=== PATIENT | male | born 1945 | race African-American/Black ===

== ENCOUNTER 2016-06-27 00:30 | Emergency (ER) | payer MEDICARE, MEDICAID ==
[~2016-06-27 00:30] MED LIST: CIPR500T4 PO; PERC5TAB12 PO; Z.0.NO CURRENT MEDS
[2016-06-27 00:33] VITALS: BP 194/104; PULSE 93; RESP 14; TEMP 98.5; O2SAT 98
--- NOTE | 2016-06-27 00:52 | PD ---
HPI Chief Complaint: Oral / Dental Pain or Problem Time Seen by Provider: 00:52 Travel History International Travel<30 days: No Contact w/Intl Traveler<30days: No Traveled to known affect area: No History of Present Illness HPI 71-year-old male presents to the emergency department for evaluation of left mandibular first molar pain worsening over the past several weeks. Denies any fever or chills. No swelling. No trauma. Patient also reports a cough that has been ongoing for an unknown amount of time. It is productive of a greenish brown sputum. Patient states that he smokes tobacco cigarettes, a pack every 2 days. Denies any fever or chills. Has not followed up with primary care provider. Denies chest pain. No difficulty breathing. No other symptoms to report this time. PFSH Past Medical History Heart Rhythm Problems: No Cardiac Catheterization: No Cardiovascular Problems: No High Cholesterol: No Congestive Heart Failure: No Diabetes: No Diminished Hearing: No Past Surgical History Coronary Artery Bypass Graft: No Other Surgery: Yes (L LEG SKIN GRAFT) Social History Alcohol Use: No Tobacco Use: No Substance Use: No Allergies-Medications (Allergen,Severity, Reaction): Coded Allergies: No Known Allergies (Verified , 06/27/16) Reported Meds & Prescriptions Reported Meds & Active Scripts Active Peridex Liq (Chlorhexidine Gluconate (Mouth) Liq) 0.12% Soln 15 Ml SWISH-SPIT BID Proair Hfa 8.5 GM Inh (Albuterol Sulfate) 90 Mcg/Act Aer 2 Puff INH Q4HR PRN 108 mcg/actuation Doxycycline Hyclate 100 Mg Cap 100 Mg PO BID Percocet 5-325 mg (Oxycodone/Acetaminophen) Oxycodone 5/325 Acetaminophen Tab 1 Tab PO Q6H PRN Reported Cipro (Ciprofloxacin HCl) 500 Mg Tab 500 Mg PO BID No Current Meds (Miscellaneous Medication) Misc Review of Systems Except as stated in HPI: all other systems reviewed are Neg Physical Exam Narrative GENERAL: Well-nourished elderly male patient in no acute distress SKIN: Focused skin assessment warm/dry. HEAD: Atraumatic. Normocephalic. EYES: Pupils equal and round. No scleral icterus. No injection or drainage. ENT: No nasal bleeding or discharge. Mucous membranes pink and moist. DENTAL: No loose or chipped teeth. The left mandibular first molar is decayed down to the gingiva with significant gingival erythema and edema. No appreciable abscess. No malocclusion. NECK: Trachea midline. No JVD. CARDIOVASCULAR: Regular rate and rhythm. No murmur appreciated. RESPIRATORY: No accessory muscle use. Coarse throughout, diminished bases. Breath sounds equal bilaterally. GASTROINTESTINAL: Abdomen soft, non-tender, nondistended. Hepatic and splenic margins not palpable. MUSCULOSKELETAL: No obvious deformities. No clubbing. No cyanosis. No edema. NEUROLOGICAL: Awake and alert. No obvious cranial nerve deficits. Motor grossly within normal limits. Normal speech. PSYCHIATRIC: Appropriate mood and affect; insight and judgment normal. Data Data Last Documented VS Vital Signs Date Time Temp Pulse Resp B/P Pulse Ox O2 Delivery O2 Flow Rate FiO2 06/27/16 00:33 98.5 93 14 194/104 98 Room Air Orders Ketorolac Inj (Toradol Inj) (06/27/16 01:00) Chest, Single Ap (06/27/16 ) Albuterol-Ipratropium Neb (Duoneb Neb) (06/27/16 01:00) MDM Medical Decision Making Medical Screen Exam Complete: Yes Emergency Medical Condition: Yes Medical Record Reviewed: Yes Differential Diagnosis Dental caries versus pulpitis versus gingivitis versus periodontal disease COPD versus COPD exacerbation versus pneumonia versus neoplasm Narrative Course 71-year-old male presents to emergency department for evaluation. Patient appears without distress. She does have significantly decayed left mandibular first molar with no appreciable abscess. His lung sounds are coarse throughout. Due to duration of cough and age and smoking history, chest x-ray is complete. Chest x-ray shows left basilar atelectasis and small left sided pleural effusion. Patient is counseled on smoking cessation. He'll be started on oral antibiotics. He is instructed to seek primary care and dental follow- up. He agrees to return immediately with any acute worsening of symptoms. Diagnosis Primary Impression: Pneumonia Qualified Code: J18.1 - Pneumonia of left lower lobe due to infectious organism Additional Impression: Dentalgia Referrals: Primary Care Physician Patient Instructions: Cigarette Smoking and Your Health (GEN), Community Acquired Pneumonia (ED), Dental Caries (ED), General Instructions Additional Instructions: Stop smoking tobacco cigarettes Follow-up with the primary care provider Seek dental evaluation Tylenol or ibuprofen as directed on the package as needed for pain Return immediately with any acute worsening symptoms Med/Other Pt SpecificInfo: Prescription(s) given Scripts Chlorhexidine Gluconate (Mouth) Liq (Peridex Liq)0.12% Soln15 Ml SWISH-SPIT BID #473 ML Ref 0 Prov:Angelique Bustamante 06/27/16 Albuterol 8.5 GM Inh (Proair Hfa 8.5 GM Inh)90 Mcg/Act Aer2 Puff INH Q4HR PRN ( SHORTNESS OF BREATH) #1 INHALER Ref 0 108 mcg/actuation Prov:Angelique Bustamante 06/27/16 Doxycycline Hyclate 100 Mg [id number] Mg PO BID #20 CAP Ref 0 Prov:Angelique Bustamante 06/27/16 Disposition: 01 DISCHARGE HOME Condition: Stable Angelique Bustamante June 27, 2016 00:52
[2016-06-27] MEDS ORDERED: RESP: ALBUTEROL 2.5 MG/IPRATROPIUM 0.5 MG NEB (SCH) NEB ONE (01:00)
[2016-06-27] MEDS ORDERED: KETOROLAC TROMETHAMINE 60 MG/2 ML (IM) VIAL IM ONE (01:00)
--- NOTE | 2016-06-27 01:49 | RADRPT ---
EXAM DATE/TIME: 06/27/2016 00:52 [facility] COMPARISON: No previous studies available for comparison. INDICATIONS : Chest pain. MEDICAL HISTORY : None. SURGICAL HISTORY : None. ENCOUNTER: Initial ACUITY: 1 day PAIN SCORE: 8/10 LOCATION: Bilateral chest FINDINGS: The cardiac silhouette is enlarged in transverse diameter. There is subsegmental atelectasis in the l eft base. The right lung is free of acute parenchymal opacity. A small left sided effusion is present . CONCLUSION: 1. Cardiomegaly. Left basilar atelectasis and small left effusion Librado Rodas MD on June 27, 2016 at 1:47 Board Certified Radiologist. This report was verified electronically.
[2016-06-27] MEDS ORDERED: ALBUAER3 INH (02:04)
[2016-06-27] MEDS ORDERED: DOXY100C PO (02:04)
[2016-06-27] MEDS ORDERED: PERI0.126 SWISH-SPIT (02:04)
== END 2016-06-27 02:36 | disposition home or self-care (01) ==
LOC: NEPK 00:30
DX: J18.1 Lobar pneumonia, unspecified organism (principal)
CPT/HCPCS: 71010; 94664; 96372; 99283; J1885